=== PATIENT | male | born 1940 | race Caucasian/White ===

== ENCOUNTER 2018-12-18 13:13 | Emergency (ER) | payer BC ==
[2018-12-18 14:39] LABS: Anion Gap 8 mmol/L (10-20); BUN (Urea Nitrogen) 15 mg/dL (8.4-25.7); Calc. Creatinine Clearance 0 mL/min (70-130); Calcium 10.7 mg/dL (7.8-10.44); Carbon Dioxide 31 mmol/L (23-31); Chloride 104 mmol/L (98-107); Estimated GFR-MDRD 62; Glucose 87 mg/dL (83-110); Potassium 3.8 mmol/L (3.5-5.1); Sodium 139 mmol/L (136-145)
--- NOTE | 2018-12-18 14:53 | CT ---
CT ABDOMEN AND PELVIS WITHOUT CONTRAST: Comparison: 07-28-16 History: Kidneys stones needing lithotripsy. Technique: Multiple contiguous axial images were obtained in a CT of the abdomen and pelvis without c ontrast. Coronal reformats were performed. FINDINGS: There is a 7-8 mm calcification in the distal left ureter with mild left hydronephrosis and hydrouret er. Multiple calcifications were seen in both kidneys. The largest was seen on the right measuring 11 mm in size. The gallbladder is distended without obvious calcified gallstones. The liver, adrenal glands, spleen, and pancreas are unremarkable, although evaluation is limited without IV contrast. The large and sma ll bowel are unremarkable. The appendix is normal. No abdominal or pelvic lymphadenopathy are seen. Degenerative changes are seen in the spine. Visualized inferior thorax and abdominal wall soft tissue s are unremarkable. IMPRESSION: 1. Left distal ureteral calcification with mild left hydronephrosis. 2. Numerous bilateral nonobstructing renal calcifications. POS: H
[2018-12-18] MEDS ORDERED: HYDROmorphone 0.5 MG/0.5 ML SYRINGE ONE (14:58)
[2018-12-18 15:46] LABS: Bilirubin Negative (Negative); Blood, Urine Large (Negative); Glucose, Urine (Dipstick) Negative (Negative); Leukocyte Small (Negative); Nitrite Negative (Negative); Protein, Urine (Dipstick) Trace mg/dL (Neg-Trace); Urobilinogen 0.2 mg/dL (Less than 2)
[2018-12-18 15:51] LABS: Clarity Clear (Clear)
[2018-12-18 16:01] LABS: Bacteria/HPF 2+ HPF (None Seen); Squamous Epithelial 0-3 HPF (0-3); WBC/HPF 21-50 HPF (0-3)
== END 2018-12-18 16:48 | disposition home or self-care (01) ==
LOC: ERS 13:13
DX: N13.2 Hydronephrosis with renal and ureteral calculous obstruction (principal); R31.9 Hematuria, unspecified; F41.9 Anxiety disorder, unspecified; F32.9 Major depressive disorder, single episode, unspecified; Z79.899 Other long term (current) drug therapy
CPT/HCPCS: 74176; 80048; 81003; 81015; 87077; 87086; 87186; 96374; J1170